=== PATIENT | male | born 1955 | race Caucasian/White ===

== ENCOUNTER 2022-07-03 14:46 | Inpatient (IN) ==
[2022-07-03] MEDS ORDERED: Naloxone 0.4 MG/ML INJ IVP PRN (19:58)
[2022-07-03] MEDS ORDERED: Calcium Gluconate 1gm/50mL 1 GM/50 ML BAG IVPB PRN (20:02)
[2022-07-03] MEDS ORDERED: Ondansetron 4 MG/2 ML VIAL IVP PRN (20:02)
[2022-07-03] MEDS ORDERED: *HR* Dextrose 50 % in Water (Syg) 50 ML SYRINGE IVP PRN (20:03)
[2022-07-03] MEDS ORDERED: D5% in Water 1,000 ML IVC PRN (20:03)
[2022-07-03] MEDS ORDERED: Dextrose Gel 15 GM/37.5 ML TUBE PO PRN ×2 (20:03)
[2022-07-03] MEDS ORDERED: Insulin LISPRO 300 UNITS/3 ML VIAL SUBQ SCH (21:00)
[2022-07-03 21:03] LABS: Bilirubin,Urine Negative (Negative); Blood,Urine Trace (Negative); Clarity,Urine Clear (Clear); Color,Urine Colorless (Yellow); Glucose,Urine (UA) 200 mg/dL (Normal); Hyaline Casts,Urine Few per lpf (None Seen); Ketones,Urine Negative (Negative); Leukocyte Esterase,Urine Negative (Negative); Nitrite,Urine Negative (Negative); Protein,Urine 50 mg/dL (Neg-Trace); Specific Gravity,Urine 1.008 (1.010-1.025); Urobilinogen,Urine Normal (Normal); WBC,Urine 0-3 per hpf (0-3)
[2022-07-03] MEDS: Sodium Bicarbonate 75 MEQ in 0.45 % Sodium Chloride 1,000 ML IVC SCH (21:08)
[2022-07-03 21:11] LABS: Protein/Creatinine Ratio,Urine 2.31 mg/mg (0.00-0.20); Sodium, Urine 116.8 mEq/L
[2022-07-03 21:31] LABS: Basophils # 0.1 K/mcL (0.0-0.2); Basophils % 0.6 %; Eosinophils # 0.1 K/mcL (0.0-0.6); Eosinophils % 1.4 %; Hematocrit 33.1 % (37.5-50.1); Hemoglobin 10.7 g/dL (12.9-16.9); Immature Granulocytes % 0.5 % (0-4); Lymphocytes # 1.2 K/mcL (0.6-4.6); Mean Corpuscular HGB Conc 32.3 g/dL (31.6-35.5); Mean Corpuscular Hemoglobin 30.1 pg (28.0-33.3); Mean Platelet Volume 10.2 fL (9.4-12.4); Monocytes # 0.8 K/mcL (0.0-1.3); Monocytes % 10.5 %; Neutrophils # 5.7 K/mcL (1.6-8.9); Platelet Count 179 K/mcL (140-400); Red Blood Count 3.56 M/mcL (4.19-5.50); Red Cell Distribution Width 13.6 % (11.5-14.5); White Blood Count 7.9 K/mcL (4.3-11.1)
[2022-07-03 21:45] LABS: Prothrombin Time 48.7 Seconds (9.4-12.1)
[2022-07-03 21:46] LABS: INR 4.4
[2022-07-03 21:53] LABS: Albumin 3.9 g/dL (3.5-5.7); Albumin/Globulin Ratio 1.4 (1.1-2.2); Bilirubin,Direct 0.2 mg/dL (0.0-0.2); Bilirubin,Indirect 0.4 mg/dL (0.0-1.0); Bilirubin,Total 0.6 mg/dL (0.3-1.0); Globulin 2.8 g/dL (2.4-3.5); Magnesium 1.8 mg/dL (1.6-2.6); Phosphorous 4.6 mg/dL (2.7-4.5); Potassium 5.8 mEq/L (3.5-5.1); Total Protein 6.7 g/dL (6.4-8.9)
[2022-07-03 21:55] LABS: Creatine Kinase 85 Units/L (30-223); Troponin I < 0.03 ng/mL (< 0.04); Uric Acid 7.5 mg/dL (2.3-7.6)
[2022-07-03] MEDS: SODIUM ZIRCONIUM CYCLOSILICATE 5 GM POWD.PACK PO SCH (22:21)
[2022-07-04] MEDS: Sodium Bicarbonate 75 MEQ in 0.45 % Sodium Chloride 1,000 ML IVC SCH ×3 (03:50→20:36)
[2022-07-04] MEDS ORDERED: Sodium Bicarbonate 75 MEQ in 0.45 % Sodium Chloride 1,000 ML IVC SCH (05:17)
[2022-07-04 05:34] LABS: VBG Ionized Calcium 1.12 mmol/L (1.15-1.35)
[2022-07-04 05:43] LABS: Basophils # 0.1 K/mcL (0.0-0.2); Basophils % 0.7 %; Eosinophils # 0.1 K/mcL (0.0-0.6); Eosinophils % 1.3 %; Hematocrit 32.9 % (37.5-50.1); Hemoglobin 10.8 g/dL (12.9-16.9); Immature Granulocytes % 0.6 % (0-4); Lymphocytes % 15.1 %; Mean Corpuscular HGB Conc 32.8 g/dL (31.6-35.5); Mean Corpuscular Hemoglobin 29.9 pg (28.0-33.3); Mean Corpuscular Volume 91.1 fL (83.0-100.0); Mean Platelet Volume 10.2 fL (9.4-12.4); Monocytes # 0.9 K/mcL (0.0-1.3); Monocytes % 13.1 %; Neutrophils # 4.8 K/mcL (1.6-8.9); Platelet Count 172 K/mcL (140-400); Red Blood Count 3.61 M/mcL (4.19-5.50); Red Cell Distribution Width 13.5 % (11.5-14.5); Segmented Neutrophils % 69.2 %; White Blood Count 6.9 K/mcL (4.3-11.1)
[2022-07-04 06:02] LABS: Calcium 8.9 mg/dL (8.6-10.3); Magnesium 1.9 mg/dL (1.6-2.6); Phosphorous 5.1 mg/dL (2.7-4.5); Potassium 4.7 mEq/L (3.5-5.1)
[2022-07-04] MEDS ORDERED: Pantoprazole 40 MG VIAL IVP SCH (06:30)
[2022-07-04] MEDS: SODIUM ZIRCONIUM CYCLOSILICATE 5 GM POWD.PACK PO SCH ×2 (07:33→14:10)
[2022-07-04] MEDS: Insulin LISPRO 300 UNITS/3 ML VIAL SUBQ SCH ×4 (07:39→20:37)
[2022-07-04] MEDS ORDERED: Dextrose Gel 15 GM/37.5 ML TUBE PO PRN ×4 (07:51→15:57)
[2022-07-04] MEDS ORDERED: *HR* Dextrose 50 % in Water (Syg) 50 ML SYRINGE IVP PRN ×2 (07:51→15:57)
[2022-07-04] MEDS ORDERED: D5% in Water 1,000 ML IVC PRN ×2 (07:51→15:57)
[2022-07-04] MEDS ORDERED: carvediloL 25 MG TABLET PO SCH (08:00)
[2022-07-04] MEDS ORDERED: *HR* Amiodarone 200 MG TABLET PO SCH ×2 (09:00→21:00)
[2022-07-04] MEDS ORDERED: Insulin LISPRO 300 UNITS/3 ML VIAL SUBQ SCH (11:30)
[2022-07-04] MEDS ORDERED: Calcium Gluconate 1gm/50mL 1 GM/50 ML BAG IVPB PRN (15:57)
[2022-07-04] MEDS ORDERED: Naloxone 0.4 MG/ML INJ IVP PRN (15:57)
[2022-07-04] MEDS ORDERED: Ondansetron 4 MG/2 ML VIAL IVP PRN (15:57)
[2022-07-04] MEDS: carvediloL 25 MG TABLET PO SCH (18:08)
[2022-07-04] MEDS: *HR* Amiodarone 200 MG TABLET PO SCH (20:36)
[2022-07-05 04:37] LABS: Hematocrit 30.8 % (37.5-50.1); Hemoglobin 10.2 g/dL (12.9-16.9); Mean Corpuscular HGB Conc 33.1 g/dL (31.6-35.5); Mean Corpuscular Hemoglobin 30.2 pg (28.0-33.3); Mean Corpuscular Volume 91.1 fL (83.0-100.0); Mean Platelet Volume 10.3 fL (9.4-12.4); Platelet Count 178 K/mcL (140-400); Red Blood Count 3.38 M/mcL (4.19-5.50); Red Cell Distribution Width 13.4 % (11.5-14.5); White Blood Count 6.7 K/mcL (4.3-11.1)
[2022-07-05 04:53] LABS: Calcium 8.3 mg/dL (8.6-10.3); Magnesium 1.7 mg/dL (1.6-2.6); Potassium 4.4 mEq/L (3.5-5.1)
[2022-07-05] MEDS: Insulin LISPRO 300 UNITS/3 ML VIAL SUBQ SCH ×4 (06:16→20:55)
[2022-07-05] MEDS: Pantoprazole 40 MG VIAL IVP SCH (06:17)
[2022-07-05] MEDS: carvediloL 25 MG TABLET PO SCH ×2 (09:09→18:20)
[2022-07-05] MEDS: *HR* Amiodarone 200 MG TABLET PO SCH ×2 (09:10→20:54)
[2022-07-05] MEDS: Sodium Bicarbonate 75 MEQ in 0.45 % Sodium Chloride 1,000 ML IVC SCH (12:28)
[2022-07-06 03:40] LABS: INR 1.8; Prothrombin Time 19.9 Seconds (9.4-12.1)
[2022-07-06 03:42] LABS: Calcium 8.5 mg/dL (8.6-10.3); Phosphorous 4.8 mg/dL (2.7-4.5); Potassium 4.6 mEq/L (3.5-5.1)
[2022-07-06] MEDS: Pantoprazole 40 MG VIAL IVP SCH (06:30)
[2022-07-06 07:53] VITALS: BP 156/83; PULSE 57; TEMP 97.9; O2SAT 96
[2022-07-06] MEDS ORDERED: Bicalutamide 50 MG TABLET PO SCH (09:00)
[2022-07-06] MEDS: Insulin LISPRO 300 UNITS/3 ML VIAL SUBQ SCH ×2 (09:21→12:54)
[2022-07-06] MEDS: carvediloL 25 MG TABLET PO SCH (09:23)
[2022-07-06] MEDS: *HR* Amiodarone 200 MG TABLET PO SCH (09:23)
== END 2022-07-06 14:28 | disposition home or self-care (01) | DRG 682 ==
LOC: ICNU → SUATTDRO 20:18 → 3ANU 07-05 16:52
PROVIDERS: ADMIT Internal Medicine; ATTEND Internal Medicine